=== PATIENT | male | born 1990 | race Caucasian/White ===

== ENCOUNTER 2018-05-31 22:49 | Emergency (ER) | payer BC ==
[~2018-05-31] VITALS: Ht 190.5 cm; Wt 124.7 kg
== END 2018-06-01 00:12 | disposition home or self-care (01) ==
LOC: ER 22:49
DX: S83.005A Unspecified dislocation of left patella, initial encounter (principal); X58.XXXA Exposure to other specified factors, initial encounter
CPT/HCPCS: 27550; 96374; 99283-25; J3010